=== PATIENT | male | born 1970 | race Caucasian/White ===

== ENCOUNTER 2022-01-08 12:38 | Outpatient (CLI) | payer BC, SELFPAY ==
--- NOTE | 2022-01-08 | ECG_ITS ---
Measurements Intervals [place] Rate: 64 P: 52 AR: 171 QRS: 70 QRSD: 88 T: 58 QT: 386 QTc: 398 Interpretive Statements SINUS RHYTHM WITHIN NORMAL LIMITS NO PREVIOUS ECG AVAILABLE FOR COMPARISON Electronically Signed On 01-08-2022 16:31:37 CDT by Noe Reynolds M.D.
== END 2022-01-08 12:39 | disposition home or self-care (01) ==
LOC: ANHCARD 12:46
DX: R07.9 Chest pain, unspecified (principal); R06.02 Shortness of breath
CPT/HCPCS: 93005

== ENCOUNTER 2022-04-20 17:29 | Emergency (ER) | payer BC, SELFPAY ==
[2022-04-20 18:00] VITALS: BP 115/87; PULSE 86; RESP 18; TEMP 36.3; O2SAT 99
--- NOTE | 2022-04-20 19:18 | ED.WOUNDLAC ---
HPI - Wound/Laceration General Chief Complaint: Wound/Laceration Stated Complaint: wound to rt back Time Seen by Provider: 04/20/22 18:57 History of Present Illness HPI narrative: 51-year-old male presents the emergency room for evaluation of the wound to his right flank. Patient states its been there for about a week. Wound started as a weeping area that has since crusted over. Patient describes the area surrounding the wound is burning, and on [id number]. Pain radiates around to his right flank. Related Data Allergies Allergy/AdvReac Type Severity Reaction Status Date / Time No Known Allergies Allergy Verified 04/20/22 18:03 Review of Systems Review of Systems: CONSTITUTIONAL: Denies fever, chills, or sweats. EYES: Denies visual changes, redness, or discharge. ENT: Denies rhinorrhea, congestion, sore throat, or otalgia. CARDIOVASCULAR: Denies chest pain, palpitations, or edema. RESPIRATORY: Denies cough or dyspnea. GASTROINTESTINAL: Denies abdominal pain, nausea, vomiting, or diarrhea. GENITOURINARY: Denies dysuria or hematuria. SKIN: Rash to right flank MUSCULOSKELETAL: Denies back pain, joint pain, or myalgia. NEUROLOGIC: Denies headache, numbness, dizziness, or weakness. PSYCHIATRIC: Denies anxiety or depression. Exam Narrative: GENERAL: Well-appearing, well-nourished, no physical limitations, and in no acute distress. HEAD: Normocephalic, atraumatic. EYES: Conjunctivae normal, PERRLA and EOMI. CHEST: Clear to auscultation. No respiratory distress. No wheezes rales or rhonchi. No tenderness. HEART: Regular rate and rhythm. No murmur heard. Normal peripheral pulses. ABDOMEN: Soft, nontender, nondistended, normal active bowel sounds. BACK: No CVA tenderness scabbed over vesicular rash to the right flank with surrounding erythema EXTREMITIES: Normal range of motion. No edema. No clubbing or cyanosis SKIN: Warm, dry, no rash. No noted wounds NEURO: No focal deficits. Alert and oriented x3. MAEW. CN's II-XI intact bilaterally, normal gait PSYCH: Cooperative. Normal mood and affect. Course Vital Signs Vital signs: Vital Signs Temperature 36.3 C L 04/20/22 18:00 Pulse Rate 86 04/20/22 18:00 Respiratory Rate 18 04/20/22 18:00 Blood Pressure 115/87 04/20/22 18:00 Pulse Oximetry 99 04/20/22 18:00 Temperature 36.3 C L 04/20/22 18:00 Pulse Rate 86 04/20/22 18:00 Respiratory Rate 18 04/20/22 18:00 Blood Pressure 115/87 04/20/22 18:00 Pulse Oximetry 99 04/20/22 18:00 Discharge Plan Discharge Clinical Impression: Shingles Patient Disposition: Home, Self-Care Condition: Stable Instructions: Antibiotic Form, Shingles (ED) Additional Instructions: Follow-up with your primary care physician next week. If your symptoms do not improve you may need to consider having your PCP put you on gabapentin. Prescriptions: New valacyclovir 500 mg tablet 500 mg PO Q12H 7 Days Qty: 14 0RF hydrocodone-acetaminophen 5-325 mg tablet 1 tablet PO Q8H PRN (Reason: pain) Qty: 20 0RF Follow-up/Referrals: PHYSICIAN,MICROFILMING DOCUMENT PREPARER [Non-Staff] - Time of Disposition: 19:21
== END 2022-04-20 19:47 | disposition home or self-care (01) ==
LOC: ANHED 19:36
PROVIDERS: Emergency Provider Nurse Practitioner Family; PCP Internal Medicine
DX: B02.9 Zoster without complications (principal)
CPT/HCPCS: 96372; 99283; J1100

== ENCOUNTER 2025-07-14 18:40 | Emergency (ER) | payer OTHER, SELFPAY ==
--- NOTE | ~2025-07-14 | XR_ITS ---
XR knee LT 3V INDICATION: dislo? pain . COMPARISON: None. FINDINGS: Frontal, lateral and oblique views of the left knee demonstrate no acute fracture or dislocation. There is no joint effusion. IMPRESSION: Radiographic examination of the left knee demonstrates no acute fracture or dislocation. Reviewed, dictated and finalized at location S. IMPRESSION: Radiographic examination of the left knee demonstrates no acute fracture or dis location.
[2025-07-14 18:43] VITALS: BP 130/78; PULSE 92; RESP 16; TEMP 36.3; O2SAT 96
--- OUTSIDE RECORDS SUMMARY | 2025-07-14 18:43 | XMS_ITS | Clinical Summary ---
Author Organization [facility] Address [address] [place] [address] Care Team Providers Care Intelligence Operations Specialist Name Role Phone Korin Calvin MD Primary Care Provider [phone] Allergies No known active allergies Medications albuterol HFA (PROVENTIL HFA,VENTOLIN HFA,PROAIR HFA) 90 mcg/actuation inhaler Inhale 2 puffs every 4 (four) hours as needed for wheezing 1 Inhaler 0 Active Additional Information Patient not taking.Reported on 06/21/2023 valACYclovir (VALTREX) 500 mg tablet Take 1 tablet (500 mg total) by mouth daily 90 tablet 3 Active venlafaxine XR (EFFEXOR-XR) 37.5 mg 24 hr capsule Take one tablet a day 14 capsule [address] (CYMBALTA) 60 mg capsule Take 1 capsule (60 mg total) by mouth daily 90 capsule 1 4 Active amLODIPine (NORVASC) 5 mg tabletIndication s:Essential hypertension Take 0.5 tablets (2.5 mg total) by mouth daily 50 tablet 1 4 Active cyclobenzaprine (FLEXERIL) 10 mg tablet Take 1-2 tablets QHS 45 tablet 5 Active Active Problems Problem Noted Date Diagnosed Date Anxiety 05/10/2024 Assessment & Plan (05/10/2024 9:33 PM CDT): Start Venlafaxine 37.5mg once a day for two weeks then 75mg once a day. 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 Is not present today's EKG. We will see what his 14 day monitor shows. Palpitations 03/19/2023 Assessment & Plan (07/04/2023 2:01 PM CDT): -Continue with scheduled ECHO -Continue following with Cardiology Assessment & Plan (06/22/2023 6:20 PM CDT): Check echocardiogram, stress test and 14 day monitor. Assessment & Plan (03/19/2023 12:45 PM CDT): Patient to obtain EKG and echo. Patient also referred to cardiology Chronic bilateral low back pain without sciatica 03/19/2023 Assessment & Plan (03/19/2023 12:59 PM CDT): Will obtain X-ray of lumbar and start physical therapy Chronic pain of both knees 03/19/2023 Assessment & Plan (03/19/2023 1:00 PM CDT): Refer to orthopedics Chronic pain of both ankles 03/19/2023 Assessment & Plan (03/19/2023 1:00 PM CDT): Will refer to orthopedics Essential hypertension 03/19/2023 Assessment & Plan (05/10/2024 9:26 PM CDT): Continue Amlodipine 5mg a day Assessment & Plan (07/04/2023 1:58 PM CDT): -Continue amlodipine. Assessment & Plan (06/22/2023 6:20 PM CDT): Continue amlodipine. Check echocardiogram. Assessment & Plan (03/19/2023 12:43 PM CDT): Continue Amlodipine 2.5mg a day Mild intermittent asthma without complication Assessment & Plan (05/10/2024 9:28 PM CDT): Continue Albuterol inhaler Q6 PRN Assessment & Plan (03/19/2023 12:48 PM CDT): Use albuterol inhaler as needed Tobacco dependence 03/19/2023 Assessment & Plan (05/10/2024 9:29 PM CDT): Talked to patient about the importance of not smoking Assessment & Plan (07/04/2023 1:59 PM CDT): -Encouraged to quit smoking Assessment & Plan (03/19/2023 12:49 PM CDT): Patient to start Bupropion XL 150mg a day Vitamin D deficiency 03/19/2023 Assessment & Plan (03/19/2023 12:52 PM CDT): Will check vitamin d level Abscess 03/19/2023 Assessment & Plan (03/19/2023 12:55 PM CDT): Patient to start Cephalexin 500mg one tablet BID Blistered skin 03/19/2023 Assessment & Plan (03/19/2023 1:04 PM CDT): Will check for herpes titers Immunizations Immunization Administration Dates Next Due Tdap 03/18/2023 ZOSTER Recombinant 03/18/2023 Family History Medical History Relation Name Comments Heart attack Father cause of Stroke Father Asthma Mother Atrial fibrillation Mother Hypertension Mother Relation Name Status Comments Father Alive Mother Alive Social History Tobacco Use Types Packs/Day Years Used Date Smoking Tobacco: Every Day Cigarettes Comments:Started smoking at age 37 one pack a day. 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 Not on file Not on file Obstetrics History Last Filed Vital Signs Vital Sign Reading Time Taken Comments Blood Pressure 120/68 05/05/2024 8:50 AM CDT Pulse 61 05/05/2024 8:50 AM CDT Temperature 37 C (98.6 F) 05/05/2024 8:50 AM CDT Respiratory Rate 16 05/05/2024 8:50 AM CDT Oxygen Saturation 98% 05/05/2024 8:50 AM CDT Inhaled Oxygen Concentration - - Weight 78.9 kg (174 lb) 05/05/2024 8:50 AM CDT Height 173 cm (5' 8.11) 05/05/2024 8:50 AM CDT Body Mass Index 26.37 05/05/2024 8:50 AM CDT Plan of Treatment Health Maintenance Due Date Last Done Comments Colon Cancer Screening-Colonoscopy 1972 Hepatitis B Screening 1990 Pneumococcal vaccine <65 (1 of 2 - PCV) 11/23/1991 Regular Well Visit/Exam 18-64 03/18/2024 03/18/2023 Depression Screening 05/05/2025 05/05/2024, 05/05/2024, 07/04/2023, Additional history exists Covid-19 Vaccine ( season) 2025 10/15/2021, 09/15/2021 Influenza Vaccine (#1) 2025 Prostate Cancer Screening-PSA 07/04/2025 07/04/2023, 12/06/2021 Zoster Vaccine (2 of 2) 07/22/2025 03/18/2023 Post poned from 05/13/2023 (Patient declined, but will receive in the future) DTaP/Tdap/Td Vaccine (2 - Td or Tdap) 03/18/2033 03/18/2023 Hepatitis C Screening Completed 07/04/2023 Procedures Procedure Name Priority Date/Time Associated Diagnosis Comments HEPATITIS C ANTIBODY Routine 07/04/2023 12:35 PM CDT Routine medical exam PSA SCREEN Routine 07/04/2023 12:35 PM CDT Prostate cancer screening from Last 3 Months or Most Recently Relevant to Health Maintenance Results * PSA screen (07/04/2023 12:35 PM CDT) PSA-Total 1.51 <=3.90 ng/mL Comment: Interpretive Data AGE SEX REFERENCE INTERVAL 0 minutes-150 years Female None 0 minutes-49 years Male None 50-59 years Male 0-3.90 60-69 years Male 0-5.40 70-79 years Male 0-6.20 80-150 years Male 0-6.20 The Ar[employer] PSA Total assay procedure was used. Results from different manufacturers or methods may not be comparable. Serial testing should be performed using the same method. Current interpretive data last revised 22. Blood 07/04/2023 12:3 5 PM CDT 07/04/2023 3:47 PM CDT Mere MASCORRO CH - 07/04/2023 4:58 PM CDT Nothing by mouth 10-12 hours prior to testing. May drink water Korin Calvin MD LAB BLOOD ORDERABLES Final Result [facility] [id number] Department [place] [address] * Hepatitis C antibody Blood (07/04/2023 12:35 PM CDT) Hep C Ab Nonreactive Nonreactive Comment: Interpretive Data Nonreactive: Antibodies to HCV not detected. Does NOT exclude the possibility of recent exposure to HCV. Equivocal: Equivocal for HCV antibodies. Supplemental molecular testing will be automatically performed to determine infection status in accordance with current CDC screening recommendations. Reactive: Positive for HCV antibodies. This may represent current or past HCV infection. Supplemental molecular testing will be automatically performed to determine current infection status in accordance with current CDC screening recommendations. Interpretive data was last revised on 2019. Blood 07/04/2023 12:3 5 PM CDT 07/04/2023 3:47 PM CDT Mere [facility] KIRKPATRICK - 07/04/2023 4:51 PM CDT Nothing by mouth 10-12 hours prior to testing. May drink water us Korin Calvin MD LAB MICROBIOLOGY - GENERAL ORDERABLES Final Result [facility] [id number] Department [place] [address] from Last 3 Months or Most Recently Relevant to Health Maintenance Insurance [facility] Care Teams Intelligence Operations Specialist Relationship Specialty Start Date End Date Korin Calvin MD [address] [facility] [address] [address] PCP - General Internal Medicine 03/19/23
--- NOTE | 2025-07-14 22:02 | ED_ITS ---
HPI - Extremity Injury (Lower) General Chief Complaint: Extremity Injury, Lower Stated Complaint: left knee dislocation? Time Seen by Provider: 07/14/25 21:52 History of Present Illness HPI Narrative: 54-year-old male with no pertinent past medical history presenting to the emergency depart with left knee pain. Patient states for last week he has been having some popping sensations in his left knee and today while he was kneeling on the floor and trying to ascend he felt a significant pain and a popping sensation. Was not able to bear weight immediately afterwards. He is concerned about his meniscus. No previous traumatic injuries but states that he has ?bad knees. No previous surgeries. Was otherwise in his normal state of health. Did not take anything for pain prior to arrival. Related Data Allergies Allergy/AdvReac Type Severity Reaction Status Date / Time No Known Allergies Allergy Verified 07/14/25 18:42 Review of Systems Review of Systems: As reviewed above in HPI Exam Narrative: GENERAL: [Well-appearing, well-nourished, and in no acute distress.] HEAD: [Normocephalic, atraumatic.] EYES: [PERRLA and EOMI.] ENT: Nares clear, no rhinorrhea or epistaxis. Mucous membranes moist. NECK: Supple. CHEST: [Clear to auscultation. No respiratory distress.] HEART: [Regular rate and rhythm]. No murmur heard. [Normal peripheral pulses.] ABDOMEN: [Soft, nondistended], [nontender], [No rigidity or guarding] EXTREMITIES: Able to hold extensor mechanism of the left lower extremity but painful past 45?. Tenderness to palpation over the medial joint line and pain with valgus stress testing. No laxity with valgus or varus stress testing. Negative Gail's testing. No pain with the palpation of the patellar quadriceps tendon. No patellar instability or tenderness along the facets. Plantar and ankle dorsiflexion 5/5 minutes does not elicit any pain. Distal pulses intact, warm extremity. SKIN: Warm, dry, no rash. NEURO: [No focal deficits]. Alert and oriented [x3.] PSYCH: [Normal mood and affect.] Course Vital Signs Vital signs: Vital Signs Temperature 36.3 C L 07/14/25 18:43 Pulse Rate 92 07/14/25 18:43 Respiratory Rate 16 07/14/25 18:43 Blood Pressure 130/78 10/29/25 18:43 Pulse Oximetry 96 07/14/25 18:43 Temperature 36.3 C L 07/14/25 18:43 Pulse Rate 92 07/14/25 18:43 Respiratory Rate 16 07/14/25 18:43 Blood Pressure 130/78 07/14/25 18:43 Pulse Oximetry 96 07/14/25 18:43 MDM - Extremity Injury (Lower) MDM Narrative Medical decision making narrative: 54-year-old male with no pertinent past medical history presenting to the emergency depart with left knee pain. Patient states for last week he has been having some popping sensations in his left knee and today while he was kneeling on the floor and trying to ascend he felt a significant pain and a popping sensation. Was not able to bear weight immediately afterwards. He is concerned about his meniscus. No previous traumatic injuries but states that he has ?bad knees. No previous surgeries. Was otherwise in his normal state of health. Did not take anything for pain prior to arrival. Able to hold extensor mechanism of the left lower extremity but painful past 45?. Tenderness to palpation over the medial joint line and pain with valgus stress testing. No laxity with valgus or varus stress testing. Negative Gail's testing. No pain with the palpation of the patellar quadriceps tendon. No patellar instability or tenderness along the facets. Plantar and ankle dorsiflexion 5/5 minutes does not elicit any pain. Distal pulses intact, warm extremity. Patient has normal vital signs and based on exam likely has potential medial meniscus or medial collateral ligament injury verses patellar dislocation versus patella tendinopathy and less likely fracture given lack of trauma. X-rays obtained and he was given Toradol and ice for analgesia. X-ray showed no acute abnormality. Patient placed in a knee immobilizer and given crutches for ambulation assistance and refer to orthopedics for outpatient evaluation and MRI imaging as needed if not improving. Medical Records Attestation: I reviewed the patient's medical records. Lab Data Attestation: I reviewed the patient's lab results. Imaging Data Attestation: I personally reviewed and interpreted this imaging study as follows: My impression: Impressions Knee X-Ray 07/14/25 19:15 IMPRESSION: Radiographic examination of the left knee demonstrates no acute fracture or dislocation. Discharge Plan Discharge Clinical Impression: Internal derangement of knee, Acute knee pain Patient Disposition: Home Condition: Stable Instructions: Antibiotic Form Additional Instructions: X-ray showed no fracture dislocation. No joint effusion. Suspect potential meniscus or medial collateral ligament injury based on exam. Wear the knee immobilizer for comfort and support. Take anti-inflammatories prescribed for pain and swelling control. Crutches for ambulation assistance. Call the provider orthopedics surgeon for outpatient follow-up and further testing as needed such as MRI. Patient Language: Faroese Prescriptions: New lidocaine 4 % adhesive patch,medicated 1 patch topical DAILY PRN (Reason: pain) Qty: 5 0RF ketorolac 10 mg tablet 10 mg PO Q8H PRN (Reason: pain) 5 Days Qty: 20 0RF Rx Instructions: maximum total duration of 5 days from all oral, intranasal, or parenteral formulations No Action valacyclovir 500 mg tablet 500 mg PO Q12H 7 Days Qty: 14 0RF hydrocodone-acetaminophen 5-325 mg tablet 1 tablet PO Q8H PRN (Reason: pain) Qty: 20 0RF Follow-up/Referrals: Bindu,MD Jono [Primary Care Provider, Unknown] Ponce Lehman MD [Physician, Orthopedics] - 3 Days Referral Note: Left knee pain, possible meniscal injury Time of Disposition: 22:32
[2025-07-14] MEDS: KETOROLAC 30 MG/ML VIAL (*BKC) IM (22:16)
== END 2025-07-14 22:48 | disposition home or self-care (01) ==
PROVIDERS: Emergency Provider Student in an Organized Health Care Education/Training Program; PCP Internal Medicine
DX: M23.92 Unspecified internal derangement of left knee (principal)
CPT/HCPCS: 73562; 96372; 99283; J1885